=== PATIENT | male | born 1960 | race Caucasian/White ===

== ENCOUNTER 2020-07-13 12:02 | Observation (INO) | payer MEDICAID ==
--- NOTE | 2020-07-13 12:31 | ED ---
Chest Pain HPI - General Chief Complaint: Chest Pain Stated Complaint: Chest Pain Source: patient, EMS Mode of arrival: EMS Limitations: no limitations - History of Present Illness Initial Comments: Patient is a 60-year-old male with past medical history of COPD who presents emergency Department with reported chest pain. He is a transfer from [facility]. States he began having some shortness of breath and chest pressure last night. He attempted to use his 's inhaler. Thought that he had some improvement in his symptoms. This morning the patient attempted to ride a stationary bike and got extremely diaphoretic with heavy chest pressure. He wanted to [facility] where his troponin and EKG were normal. They initiated him on a heparin drip and gave him aspirin. Patient felt improvement after Nitropaste was applied to his chest. He has no previous cardiac history however they recommended that he be transferred for cardiology evaluation. Patient is asymptomatic upon arrival to our facility. No other alleviating, precipitating or modifying factors - Related Data Home Medications Medication Instructions Recorded Confirmed Aspirin EC [Ecotrin Low Dose] 81 mg PO DAILY 07/13/20 07/13/20 Lisinopril [Prinivil] 10 mg PO DAILY 07/13/20 07/13/20 Omeprazole [PriLOSEC] 20 mg PO DAILY 07/13/20 07/13/20 Simvastatin [Zocor] 10 mg PO DAILY 07/13/20 07/13/20 Allergies Allergy/AdvReac Type Severity Reaction Status Date / Time Penicillins Allergy Unknown Verified 07/13/20 13:23 Childhood Review of Systems ROS Statement: Those systems with pertinent positive or pertinent negative responses have been documented in the HPI. ROS Other: All systems not noted in ROS Statement are negative. EKG Findings - EKG Comments: EKG Findings:: EKG demonstrates normal sinus rhythm with ventricular rate of 66. TN interval 160. QRS 94. QTC 423. No acute ST segment elevations Past Medical History Past Medical History: COPD, Hypertension History of Any Multi-Drug Resistant Organisms: None Reported Past Surgical History: Orthopedic Surgery Additional Past Surgical History / Comment(s): lea Past Psychological History: Anxiety Smoking Status: Never smoker Past Alcohol Use History: None Reported Past Drug Use History: Marijuana - Past Family History Father Family Medical History: CVA/TIA, Dementia, Myocardial Infarction ([place]) Additional Family Medical History / Comment(s): Father had a [place] in his 60s. Mother Family Medical History: Dementia, Hypertension General Exam Limitations: no limitations Course Vital Signs 07/13/20 07/13/20 07/13/20 12:06 13:00 15:00 Temperature 99.1 F Pulse Rate 62 72 69 Respiratory 20 18 20 Rate Blood Pressure 132/100 139/72 136/89 O2 Sat by Pulse 97 99 96 Oximetry Chest Pain MDM - MDM Upon arrival the patient is placed in room 21. A thorough history and physical exam was performed. Repeat laboratory studies were conducted. 12-lead EKG was performed. I did review the patient's [facility] from [facility] hospital. Laboratory studies demonstrate a negative troponin. Coronavirus not detected. Did recommend hospitalization for cardiology consultation. Patient agreed to the treatment plan and is awaiting a bed Disposition Clinical Impression: Chest pain, COPD (chronic obstructive pulmonary disease) Disposition: ADMITTED IP TO THIS [facility] Condition: Stable Is patient prescribed a controlled substance at d/c from ED?: No Decision to Admit Reason: Admit from EC Decision Date: 07/13/20 Decision Time: 13:37
[2020-07-13 12:52] LABS: Basophils % (A) 0 %; Eosinophils # (A) 0.1 k/uL (0-0.7); Eosinophils % (A) 1 %; HCT 44.9 % (39.0-53.0); Lymphocytes # (A) 2.5 k/uL (1.0-4.8); Lymphocytes % (A) 22 %; MCHC 33.4 g/dL (31.0-37.0); MCV 89.8 fL (80.0-100.0); Mean Platelet Volume 7.6; Monocytes # (A) 0.6 k/uL (0-1.0); Monocytes % (A) 5 %; Neutrophils # (A) 8.3 k/uL (1.3-7.7); Neutrophils % (A) 71 %; Platelet Count 261 k/uL (150-450); RDW 13.4 % (11.5-15.5); WBC 11.6 k/uL (3.8-10.6)
[2020-07-13 13:04] LABS: ALT 40 U/L (4-49); AST 32 U/L (17-59); African American GFR (CKD) >90 (>60 ml/min/1.73 sqM); Albumin 4.5 g/dL (3.5-5.0); Alkaline Phosphatase 83 U/L (38-126); Anion Gap 9 mmol/L; Blood Urea Nitrogen 18 mg/dL (9-20); Calcium 9.2 mg/dL (8.4-10.2); Carbon Dioxide 25 mmol/L (22-30); Chloride 105 mmol/L (98-107); Glucose 103 mg/dL (74-99); Non-African American GFR(CKD) >90 (>60 ml/min/1.73 sqM); Sodium 139 mmol/L (137-145); Total Bilirubin 0.6 mg/dL (0.2-1.3); Total Protein 7.5 g/dL (6.3-8.2)
[2020-07-13] MEDS ORDERED: NALOXONE 0.4 MG/ML 1 ML VIAL IV PRN (13:37)
--- NOTE | 2020-07-13 19:47 | P.HPIM ---
History of Present Illness H&P Date: 07/13/20 Chief Complaint: Chest pain History of presenting complaint: This is a [address] Burns. Chronic stable medical conditions include COPD, hypertension, GERD, hypercholesterolemia. Patient woke up about 2:00 in the morning with a heaviness in the chest. Then went on sleep. This had happened the previous night. It happened again. Similar presentation. This that the patient to call in the perspiration. Duration of chest and unknown. No radiation. No dizziness, lightheadedness. Patient decided to come to the ER for further workup. No prior cardiac history. Patient otherwise rather active. Review of systems: GEN.: None EYES: None HEENT: None NECK: None RESPIRATORY: None CARDIOVASCULAR: As above GASTROINTESTINAL: Reflux GENITOURINARY: None MUSCULOSKELETAL: None LYMPHATICS: None HEMATOLOGICAL: None PSYCHIATRY: None NEUROLOGICAL: None Past medical history to include: High cholesterol, hypertension, GERD, anxiety. 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 Family history: Father had a heart attack in his 50s. Physical examination: VITAL SIGNS: 99.1, 62, 20, 132/100, 97% on room air GENERAL: BMI 34.1, sitting up in bed, comfortable. EYES: Pupils equal. Conjunctiva normal. HEENT: External appearance of nose and ears normal, oral cavity grossly normal. NECK: JVD not raised; masses not palpable. HEART: First and second heart sounds are normal; no edema. LUNGS: Respiratory rate normal; clear to auscultation. ABDOMEN: Soft, nontender, liver spleen not palpable, no masses palpable. PSYCH: Alert and oriented x3; mood and affect normal. NEUROLOGICAL: Cranial nerves grossly intact; no facial asymmetry, power and sensation grossly intact. LYMPHATICS: No lymph nodes palpable in the axilla and neck INVESTIGATIONS, reviewed in the clinical context: White count 11.6 hemoglobin 15 platelets 261 potassium 4 bun 18 creatinine 0.8 date Troponin I 2 negative Coronavirus [PCR]-not detected EKG tracing personally reviewed by me shows-normal sinus rhythm Assessment and plan: -Anterior chest wall pain with some cardiac features. Cardiac risk factors include hypercholesterolemia, hypertension. Will need stress test. Consult cardiology -Essential hypertension continue Prinivil -GERD continue Prilosec -Hypercholesterolemia continue Zocor -Obesity BMI 34.1. Patient to follow this PCP for weight loss measures Care was discussed with the patient. Plan was discussed Past Medical History Past Medical History: COPD, Hypertension History of Any Multi-Drug Resistant Organisms: None Reported Past Surgical History: Orthopedic Surgery Additional Past Surgical History / Comment(s): bilknee Past Anesthesia/Blood Transfusion Reactions: No Reported Reaction Past Psychological History: Anxiety Smoking Status: Never smoker Past Alcohol Use History: None Reported Past Drug Use History: Marijuana - Past Family History Father Family Medical History: CVA/TIA, Dementia, Myocardial Infarction ([place]) Additional Family Medical History / Comment(s): Father had a [place] in his 60s. Mother Family Medical History: Dementia, Hypertension Medications and Allergies Home Medications Medication Instructions Recorded Confirmed Type Aspirin EC [Ecotrin Low Dose] 81 mg PO DAILY 07/13/20 07/13/20 History Lisinopril [Prinivil] 10 mg PO DAILY 07/13/20 07/13/20 History Omeprazole [PriLOSEC] 20 mg PO DAILY 07/13/20 07/13/20 History Simvastatin [Zocor] 10 mg PO DAILY 07/13/20 07/13/20 History Allergies Allergy/AdvReac Type Severity Reaction Status Date / Time Penicillins Allergy Unknown Verified 07/13/20 13:23 Childhood Physical Exam Vitals: Vital Signs Temp Pulse Pulse Resp BP BP Pulse Ox 07/13/20 16:26 98.4 F 66 18 166/91 94 L 07/13/20 15:00 69 20 136/89 96 07/13/20 13:00 72 18 139/72 99 07/13/20 12:06 99.1 F 62 20 132/100 97 Intake and Output 07/13/20 07/13/20 07/13/20 06:59 14:59 22:59 Other: Weight 98.883 kg 98.883 kg Results CBC & Chem 7: 07/13/20 12:26 07/13/20 12:26 Labs: Abnormal Lab Results - Last 24 Hours (Table) 07/13/20 07/13/20 Range/Units 12:26 12:26 WBC 11.6 H (3.8-10.6) k/uL Neutrophils # 8.3 H (1.3-7.7) k/uL Glucose 103 H (74-99) mg/dL Thrombosis Risk Factor Assmnt - Choose All That Apply Any of the Below Risk Factors Present?: Yes Each Factor Represents 1 point: Abnormal pulmonary function (COPD), Obesity (BMI >25) Other Risk Factors: Yes Each Risk Factor Represents 2 Points: Age 61-74 years Other congenital or acquired thrombophilia - If yes, enter type in comment: No Thrombosis Risk Factor Assessment Total Risk Factor Score: 4 Thrombosis Risk Factor Assessment Level: Moderate Risk
[2020-07-14 07:39] VITALS: BP 155/86; PULSE 64; RESP 16; TEMP 97.5
[2020-07-14 08:47] LABS: Basophils # (A) 0.05 X 10*3/uL (0.00-0.10); Basophils % (A) 0.4 %; Eosinophils # (A) 0.08 X 10*3/uL (0.04-0.35); Eosinophils % (A) 0.7 %; HCT 45.8 % (39.6-50.0); HGB 14.8 g/dL (13.0-17.0); Lymphocytes # (A) 2.14 X 10*3/uL (0.90-5.00); Lymphocytes % (A) 18.9 %; MCH 29.5 pg (27.0-32.0); MCHC 32.3 g/dL (32.0-37.0); MCV 91.4 fL (80.0-97.0); Mean Platelet Volume 9.8 fL (9.5-12.2); Monocytes # (A) 1.03 X 10*3/uL (0.20-1.00); Monocytes % (A) 9.1 %; Neutrophils # (A) 8.02 X 10*3/uL (1.80-7.70); Neutrophils % (A) 70.6 %; Platelet Count 276 X 10*3/uL (140-440); RBC 5.01 X 10*6/uL (4.40-5.60); RDW 13.2 % (11.5-14.5); WBC 11.35 X 10*3/uL (4.50-10.00)
[2020-07-14] MEDS ORDERED: PANTOPRAZOLE 40 MG TABLET PO SCH (09:00)
[2020-07-14] MEDS ORDERED: lisinopriL 10 MG TAB PO SCH (09:00)
[2020-07-14] MEDS ORDERED: ATORVASTATIN 10 MG TAB PO SCH (09:00)
[2020-07-14] MEDS ORDERED: ASPIRIN 81 MG PO SCH (09:00)
[2020-07-14 09:41] LABS: African American GFR (CKD) 93.1 (60.0-200.0); Anion Gap 8.3 mmol/L (4.00-12.00); Calcium 9.4 mg/dL (8.7-10.3); Carbon Dioxide 24.7 mmol/L (21.6-31.8); Non-African American GFR(CKD) 80.3 (60.0-200.0); Potassium 4.1 mmol/L (3.5-5.5)
--- NOTE | 2020-07-14 09:49 | P.CRDCN ---
History of Present Illness History of present illness: HISTORY OF PRESENTING ILLNESS This is a pleasant 60-year-old male past medical history significant for COPD, hypertension and former nicotine dependence. He also has family history of premature coronary artery disease and his father. He denies personal prior history of coronary artery disease and does not follow in the office with a cyber software engineer. We have been asked to see in consultation for chest pain. He states for the previous 2 days he has been experiencing intermittent episodes of shortness of breath. His shortness of breath is not related to activity or exertion. He felt as though his lungs were tight at the bases. He rides his stationary bike at home on a regular basis. Yesterday morning when he was going to write he thought it might help if he used an albuterol inhaler prior to writing. He has never used one before. He took 2 puffs and got on his bike. Shortly thereafter at a very slow speed on his bike he started feeling extremely diaphoretic and short of breath. This is atypical for him as he rides multiple times a day. He also felt some discomfort in his chest described as a heavy sensation when he took a deep breath. DIAGNOSTICS EKG reveals sinus mechanism heart rate 66. Telemetry tracings indicate persistent sinus mechanism. Laboratory reviewed, CBC 11.6, hemoglobin 14.8, platelets 276, sodium 140, potassium 4.1, creatinine 1.0, cardiac enzymes negative 3. Current cardiac medications include simvastatin 10 mg daily, aspirin 81 mg daily and lisinopril 10 mg daily. REVIEW OF SYSTEMS At the time of my exam: CONSTITUTIONAL: Denies fever or chills. CARDIOVASCULAR: Denies chest pain, shortness of breath, orthopnea, PND or palpitations. RESPIRATORY: Denies cough. GASTROINTESTINAL: Denies abdominal pain, diarrhea, constipation, nausea or vomiting. MUSCULOSKELETAL: Denies myalgias. NEUROLOGIC: Denies numbness, tingling, headacbe or weakness. ENDOCRINE: Denies fatigue, weight change, polydipsia or polyurina. GENITOURINARY: Denies burning, hematuria or urgency with micturation. HEMATOLOGIC: Denies history of anemia or bleeding. PHYSICAL EXAMINATION Blood pressure 155/86 heart rate 64 afebrile and maintaining oxygen saturation on room air. CONSTITUTIONAL: No apparent distress. HEENT: Head is normocephalic. Pupils are equal, round. Sclerae anicteric. Mucous membranes of the mouth are moist. No JVD. No carotid bruit. CHEST EXAMINATION: Lungs are clear to auscultation. No chest wall tenderness is noted on palpation or with deep breathing. HEART EXAMINATION: Regular rate and rhythm. S1, S2 heard. No murmurs, gallops or rub. ABDOMEN: Soft, nontender. Positive bowel sounds. EXTREMITIES: 2+ peripheral pulses, no lower extremity edema and no calf tenderness. NEUROLOGIC EXAMINATION: Patient is awake, alert and oriented x3. ASSESSMENT Chest pain Leukocytosis Hypertension Dyslipidemia COPD Former nicotine dependence PLAN An acute coronary event has been ruled out. Obtain 2-D echocardiogram and Doppler study to assess cardiac structure and function. Perform stress echocardiogram to assess for stress-induced cardiac ischemia. If stress test is normal he may be discharged from a cardiac perspective. Ongoing smoking cessation discussed. Thank you kindly for this consultation. Nurse Practitioner note has been reviewed, I agree with a documented findings and plan of care. Patient was seen and examined. Past Medical History Past Medical History: COPD, Hypertension History of Any Multi-Drug Resistant Organisms: None Reported Past Surgical History: Orthopedic Surgery Additional Past Surgical History / Comment(s): bilknee Past Anesthesia/Blood Transfusion Reactions: No Reported Reaction Past Psychological History: Anxiety Smoking Status: Never smoker Past Alcohol Use History: None Reported Past Drug Use History: Marijuana - Past Family History Father Family Medical History: CVA/TIA, Dementia, Myocardial Infarction ([place]) Additional Family Medical History / Comment(s): Father had a CT in his 60s. Mother Family Medical History: Dementia, Hypertension Medications and Allergies Home Medications Medication Instructions Recorded Confirmed Type Aspirin EC [Ecotrin Low Dose] 81 mg PO DAILY 07/13/20 07/13/20 History Lisinopril [Prinivil] 10 mg PO DAILY 07/13/20 07/13/20 History Omeprazole [PriLOSEC] 20 mg PO DAILY 07/13/20 07/13/20 History Simvastatin [Zocor] 10 mg PO DAILY 07/13/20 07/13/20 History Allergies Allergy/AdvReac Type Severity Reaction Status Date / Time Penicillins Allergy Unknown Verified 07/13/20 13:23 Childhood Physical Exam Vitals: Vital Signs Temp Pulse Pulse Resp BP BP Pulse Ox 07/14/20 07:00 97.5 F L 64 16 155/86 94 L 07/14/20 02:08 97.8 F 69 15 125/65 96 07/13/20 21:11 97.8 F 74 16 140/84 96 07/13/20 16:26 98.4 F 66 18 166/91 94 L 07/13/20 15:00 69 20 136/89 96 07/13/20 13:00 72 18 139/72 99 07/13/20 12:06 99.1 F 62 20 132/100 97 Intake and Output 07/13/20 07/14/20 07/14/20 22:59 06:59 14:59 Other: Voiding Method Toilet Toilet # Voids 1 2 Weight 98.883 kg Results 07/14/20 06:09 07/13/20 12:26 Cardiac Enzymes 07/13/20 07/13/20 07/13/20 Range/Units 12:26 12:26 15:31 AST 32 (17-59) U/L Troponin I <0.012 <0.012 (0.000-0.034) ng/mL 07/13/20 Range/Units 18:48 AST (17-59) U/L Troponin I <0.012 (0.000-0.034) ng/mL CBC 07/13/20 Range/Units 12:26 WBC 11.6 H (3.8-10.6) k/uL RBC 5.00 (4.30-5.90) m/uL Hgb 15.0 (13.0-17.5) gm/dL Hct 44.9 (39.0-53.0) % Plt Count 261 (150-450) k/uL Comprehensive Metabolic Panel 07/13/20 Range/Units 12:26 Sodium 139 (137-145) mmol/L Potassium 4.0 (3.5-5.1) mmol/L Chloride 105 (98-107) mmol/L Carbon Dioxide 25 (22-30) mmol/L BUN 18 (9-20) mg/dL Creatinine 0.88 (0.66-1.25) mg/dL Glucose 103 H (74-99) mg/dL Calcium 9.2 (8.4-10.2) mg/dL AST 32 (17-59) U/L ALT 40 (4-49) U/L Alkaline Phosphatase 83 (38-126) U/L Total Protein 7.5 (6.3-8.2) g/dL Albumin 4.5 (3.5-5.0) g/dL Current Medications Generic Name Dose Route Start Last Admin Trade Name Freq PRN Reason Stop Dose Admin Aspirin 81 mg 07/14/20 09:00 07/14/20 07:47 Aspirin 81 Mg PO 81 mg DAILY NAZARIO Administration Atorvastatin Calcium 10 mg 07/14/20 09:00 07/14/20 07:47 Atorvastatin 10 Mg Tab PO 10 mg DAILY NAZARIO Administration Lisinopril 10 mg 07/14/20 09:00 07/14/20 07:49 Lisinopril 10 Mg Tab PO 10 mg DAILY NAZARIO Administration Naloxone HCl 0.2 mg 07/13/20 13:37 Naloxone 0.4 Mg/Ml 1 Ml Vial IV Q2M PRN Opioid Reversal Pantoprazole Sodium 40 mg 07/14/20 09:00 07/14/20 07:47 Pantoprazole 40 Mg Tablet PO 40 mg DAILY NAZARIO Administration Intake and Output 07/13/20 07/14/20 07/14/20 22:59 06:59 14:59 Other: Voiding Method Toilet Toilet # Voids 1 2 Weight 98.883 kg 07/13/20 12:26 07/13/20 12:26
--- NOTE | 2020-07-14 12:32 | ECHOF ---
Referral Reason:cp MEASUREMENTS -------- HEIGHT: 170.2 cm WEIGHT: 98.9 kg BP: 155/81 IVSd: 1.3 cm (0.6 - 1.1) LVIDd: 3.8 cm (3.9 - 5.3) LVPWd: 1.3 cm (0.6 - 1.1) IVSs: 1.7 cm LVIDs: 3.4 cm LVPWs: 1.3 cm LAESV Index (A-L): 18.65 ml/m Ao Diam: 3.4 cm (2.0 - 3.7) AV Cusp: 1.8 cm (1.5 - 2.6) MV EXCURSION: 16.226 mm (> 18.000) MV EF SLOPE: 70 mm/s (70 - 150) EPSS: 0.9 cm MV E Guillaume: 0.53 m/s MV DecT: 211 ms MV A Guillaume: 0.65 m/s MV E/A Ratio: 0.82 RAP: 5.00 mmHg RVSP: 13.49 mmHg FINDINGS -------- Sinus rhythm. This was a technically adequate study. The left ventricular size is normal. There is mild concentric left ventricular hypertrophy. Overa ll left ventricular systolic function is normal with, an EF between 55 - 60 %. The diastolic fillin g pattern is normal for the age of the patient 5.65. The right ventricle is normal in size. Normal LA size by volume 22+/-6 ml/m2. The right atrial size is normal. The aortic valve is trileaflet, and appears structurally normal. No aortic stenosis or regurgitation. The mitral valve is normal. Mild mitral regurgitation is present. The tricuspid valve appears structurally normal. Mild tricuspid regurgitation present. Right vent ricular systolic pressure is normal at < 35 mmHg. There is no pulmonic regurgitation present. The aortic root size is normal. There is no pericardial effusion. CONCLUSIONS -------- 1. There is mild concentric left ventricular hypertrophy. 2. Overall left ventricular systolic function is normal with, an EF between 55 - 60 %. 3. Normal LA size by volume 22+/-6 ml/m2. 4. The aortic valve is trileaflet, and appears structurally normal. No aortic stenosis or regurgitati on. 5. Mild mitral regurgitation is present. 6. Mild tricuspid regurgitation present. 7. There is no pericardial effusion. DIRECTOR SOCIAL: Pao Almanza RDCS
--- NOTE | 2020-07-14 14:23 | ECHOS ---
STRESS ECHOCARDIOGRAM LUMASON: N/A Vial INDICATIONS: Chest pressure MEDICATIONS: BASELINE HEART RATE: 65 BASELINE BLOOD PRESSURE: 145/76 MAXIMUM HEART RATE: 152 MAXIMUM BLOOD PRESSURE: 201/86 85% MPHR: 134 100% MPHR: 158 METS: 6.8 MAXIMUM STAGE REACHED: 2 TOTAL EXERCISE TIME: 5 minutes and 3 seconds CLINICAL INFORMATION: Baseline rhythm is sinus mechanism, rate 65, normal axis and intervals, normal electrocardiogram. Baseline blood pressure 145/76 mmHg. Patient exercised on Alverto protocol for 5 minutes 3 seconds reaching peak rate 152 beats per minute which is equal to 96% maximum predicted heart rate. Peak blood pressure 201/86 mmHg. Test was terminated secondary to fatigue. There was no chest pain. Electrocardiograph monitoring revealed rare PVCs. There was no evidence of diagnostic ischemic ST deviation. Baseline echocardiogram revealed normal wall motion. At peak exercise, there was normal wall motion augmentation with no hypokinesis or dyskinesis. CONCLUSION: 1. Decreased exercise tolerance with rare PVCs and normal electrocardiograph response to exercise. 2. Normal stress echocardiogram with no evidence of stress-induced ischemia. MMODL / IJN: [id number] /
--- NOTE | 2020-07-14 23:12 | P.DS ---
Providers Date of admission: 07/13/20 13:37 Expected date of discharge: 07/14/20 Attending physician: Qamar Mckeon Consults: 07/13/20 13:38 Consult Physician Urgent Consulting Provider: [facility] Consult Reason/Comments: acute chest pain possible acs Do you want consulting provider notified?: Yes Primary care physician: [facility] Course: Chief Complaint: Chest pain History of presenting complaint: This is a [address] Burns. Chronic stable medical conditions include COPD, hypertension, GERD, hypercholesterolemia. Patient woke up about 2:00 in the morning with a heaviness in the chest. Then went on sleep. This had happened the previous night. It happened again. Similar presentation. This that the patient to call in the perspiration. Duration of chest pain unknown. No radiation. No dizziness, lightheadedness. Patient decided to come to the ER for further workup. No prior cardiac history. Patient otherwise rather active. Today-sitting up. No chest pain. Stress echocardiogram negative per cardiology. Cleared by cardiology. Discussed with patient. Consultation: Dr. Ortiz from cardiology Past medical history to include: High cholesterol, hypertension, GERD, anxiety. 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 Family history: Father had a heart attack in his 50s. Physical examination: VITAL SIGNS: 97.5, 64, 16, 155/86, 94% room air GENERAL: BMI 34.1, sitting up in bed, comfortable. EYES: Pupils equal. Conjunctiva normal. HEENT: External appearance of nose and ears normal, oral cavity grossly normal. NECK: JVD not raised; masses not palpable. HEART: First and second heart sounds are normal; no edema. LUNGS: Respiratory rate normal; clear to auscultation. ABDOMEN: Soft, nontender, liver spleen not palpable, no masses palpable. PSYCH: Alert and oriented x3; mood and affect normal. INVESTIGATIONS, reviewed in the clinical context: Stress echocardiogram-decreased exercise tolerance. Normal stress echocardiogram with no evidence of stress-induced ischemia 2-D echocardiogram-EF 55/60%. White count 11.6 hemoglobin 15 platelets 261 potassium 4 bun 18 creatinine 0.8 date Troponin I 2 negative Coronavirus [PCR]-not detected EKG tracing personally reviewed by me shows-normal sinus rhythm Assessment and plan: -Anterior chest wall pain with negative stress echocardiogram. -Essential hypertension continue Prinivil -GERD continue Prilosec -Hypercholesterolemia continue Zocor -Obesity BMI 34.1. Patient to follow this PCP for weight loss measures Disposition: Home Patient Condition at Discharge: Stable Plan - Discharge Summary Discharge Rx Participant: No New Discharge Prescriptions: Continue Simvastatin [Zocor] 10 mg PO DAILY Aspirin EC [Ecotrin Low Dose] 81 mg PO DAILY Omeprazole [PriLOSEC] 20 mg PO DAILY Lisinopril [Prinivil] 10 mg PO DAILY Discharge Medication List Aspirin EC [Ecotrin Low Dose] 81 mg PO DAILY 07/13/20 [History] Lisinopril [Prinivil] 10 mg PO DAILY 07/13/20 [History] Omeprazole [PriLOSEC] 20 mg PO DAILY 07/13/20 [History] Simvastatin [Zocor] 10 mg PO DAILY 07/13/20 [History] Follow up Appointment(s)/Referral(s): Maxwell Ortiz MD [STAFF PHYSICIAN] - 1 Week (The office will call you with an appointment) Eleuterio Burns MD [Primary Care Provider] - 1-2 days (appointment will be in the [place] office with Cassie Razo NP [phone] The office will call you with an appointment ) Patient Instructions/Handouts: Chest Pain (DC)
== END 2020-07-14 15:24 ==
LOC: EC 12:02 → 6NMEDSUR 13:37
PROVIDERS: ADMIT Hospitalist; ATTEND Hospitalist
DX: R07.89 Other chest pain (principal); J44.9 Chronic obstructive pulmonary disease, unspecified; I10 Essential (primary) hypertension; E78.00 Pure hypercholesterolemia, unspecified; D72.829 Elevated white blood cell count, unspecified; E78.5 Hyperlipidemia, unspecified; F41.9 Anxiety disorder, unspecified; R61 Generalized hyperhidrosis; K21.9 Gastro-esophageal reflux disease without esophagitis; E66.9 Obesity, unspecified; Z68.34 Body mass index [BMI] 34.0-34.9, adult; Z20.828 Contact with and (suspected) exposure to other viral communicable diseases; Z79.82 Long term (current) use of aspirin; Z79.899 Other long term (current) drug therapy; Z88.0 Allergy status to penicillin; Z87.891 Personal history of nicotine dependence; Z82.49 Family history of ischemic heart disease and other diseases of the circulatory system; Z82.3 Family history of stroke; Z81.8 Family history of other mental and behavioral disorders
CPT/HCPCS: 93005 ×2; 99285; 36415; 93306; 93351; 80053; 80048; 84484; 85025 ×2; 87635; G0378 ×2; Q9950